=== PATIENT | female | born 1950 | race Caucasian/White ===

== ENCOUNTER 2019-11-30 09:09 | Outpatient (CLI) | payer MEDICARE, SELFPAY ==
--- NOTE | 2019-11-30 10:25 | ECG_ITS ---
Measurements Intervals Taylor Rate: 79 P: 108 DE: 180 QRS: 3 QRSD: 87 T: 27 QT: 364 QTc: 419 Interpretive Statements SINUS RHYTHM LOW QRS VOLTAGE IN PRECORDIAL LEADS BORDERLINE R WAVE PROGRESSION, ANTERIOR LEADS BASELINE ARTIFACT- I, II, III, AVR, AVL, AVF BORDERLINE ECG Electronically Signed On 11-30-2019 11:09:30 MERCHANDISING MANAGER by Star Tom D.O.
[2019-11-30 10:43] LABS: Basophils Absolute Auto 0.1 K/mm3 (0.0-0.1); Basophils Percent Auto 1.8 % (0.2-1.2); Eosinophils Absolute Auto 0.4 K/mm3 (0-0.3); Eosinophils Percent Auto 5.8 % (0-4.4); Hematocrit 41.6 % (37.0-47.0); Hemoglobin 13.7 g/dL (12.0-15.0); Immature Granulocyte Absolute 0.02 K/mm3 (0.00-0.031); Immature Granulocyte Percent A 0.3 % (0-0.5); Lymphocytes Absolute Auto 1.17 K/mm3 (0.9-3.2); Lymphocytes Percent Auto 17.4 % (18.3-44.2); Mean Corpuscular HGB Conc 32.9 g/dl (32-36); Mean Corpuscular Hemoglobin 30.6 pg (26-34); Mean Corpuscular Volume 92.9 fl (80-100); Mean Platelet Volume 9.9 fl (7.4-10.4); Monocytes Absolute Auto 0.6 K/mm3 (0.1-0.6); Monocytes Percent Auto 8.8 % (2.6-8.5); Neutrophils Absolute Auto 4.4 K/mm3 (1.3-6.7); Neutrophils Percent Auto 65.9 % (45.5-73.1); Platelet Count Result 305 k/mm3 (150-375); Red Blood Count 4.48 M/mm3 (4.2-5.4); Red Cell Distribution Width 12.9 % (11.5-14.5); White Blood Count 6.7 K/mm3 (4.5-10.0)
[2019-11-30 10:58] LABS: Blood Urea Nitrogen 16 mg/dL (7-17); Calcium 9.7 mg/dL (8.4-10.2); Carbon Dioxide 32 mmol/L (22-30); Chloride 99 mmol/L (98-107); Estimated Glomerular Filt Rate > 60; Glucose 92 mg/dL (65-105); Potassium 3.6 mmol/L (3.4-5.0); Sodium 142 mmol/L (137-145)
== END 2019-11-30 09:10 | disposition home or self-care (01) ==
PROVIDERS: Anesthesiology; Obstetrics & Gynecology; PCP Family Medicine; Visit Provider Urology
DX: N81.4 Uterovaginal prolapse, unspecified (principal); I10 Essential (primary) hypertension; R94.31 Abnormal electrocardiogram [ECG] [EKG]
CPT/HCPCS: 36415; 80048; 85025; 86850; 86900; 86901; 93005

== ENCOUNTER 2019-12-10 00:17 | Day surgery (SDC) | payer MEDICARE, SELFPAY ==
[2019-11-30 09:27] VITALS: BP 158/91; PULSE 75; RESP 16; TEMP 37.1; O2SAT 99; BMI 26.8
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
[2019-12-10] VITALS (16 sets, daily range): BP systolic 114–165; BP diastolic 75–94; PULSE 71–101; RESP 14–18; TEMP 36–37.2; O2SAT 94–100
--- NOTE | 2019-12-10 06:48 | WPDHPUPDATE1 ---
History and Physical Update Update Date/Time: 12/10/19 06:48 History and Physical has been reviewed, including an updated exam of the patient. There are NO changes in the patient's condition. Risks, benefits, and alternatives have been discussed and questions answered. Patient agrees to proceed with procedure.
--- NOTE | 2019-12-10 07:21 | WPDHPUPDATE1 ---
History and Physical Update Update Date/Time: 12/10/19 07:21 History and Physical has been reviewed, including an updated exam of the patient. There are NO changes in the patient's condition. Risks, benefits, and alternatives have been discussed and questions answered. Patient agrees to proceed with procedure.
[2019-12-10] MEDS: LACTATED RINGERS 1,000 ML 30 ML IV CONT ×2 (09:45→14:20)
[2019-12-10 10:16] LABS: Prothrombin Time 12.4 Seconds (11.1-14.7)
[2019-12-10 10:17] LABS: Partial Thromboplastin Time 28.1 SECONDS (22.3-36.8)
[2019-12-10 10:18] LABS: Alanine Aminotransferase 13 U/L (4-35); Albumin Level 4.5 g/dL (3.5-5.1); Alkaline Phosphatase 59 U/L (38-126); Aspartate Amino Transferase 26 U/L (14-36); Bilirubin,Total 0.3 mg/dL (0.2-1.3); Blood Urea Nitrogen 19 mg/dL (7-17); Calcium 9.8 mg/dL (8.4-10.2); Carbon Dioxide 30 mmol/L (22-30); Chloride 100 mmol/L (98-107); Estimated CRCL calculation 43 ml/min; Estimated Glomerular Filt Rate 55; Glucose 93 mg/dL (65-105); Potassium 3.8 mmol/L (3.4-5.0); Sodium 142 mmol/L (137-145)
--- NOTE | 2019-12-10 10:28 | WPDANESEPPF ---
Anes - Initial Pre Proc Eval Procedure: Operation Date: 12/10/19 12:00 Proposed Procedures p Robotic Sacrocolpopexy, Possible Urethral Sling - Riki Levy MD s Robotic Assisted Supracervical Hysterectomy, Bilateral Salpingo-Oophorectomy - Roge Sanchez MD Date/Time: 12/10/19 10:28 Surgeon: Riki Levy MD Pre Op Diagnosis: cystocele, uterine prolapse Patient Data Age: 69 Gender: F Height: 5 ft 6 in Weight: 75.8 kg Last Vital Signs Temp 36.3 C L 12/10/19 10:14 Pulse 89 12/10/19 10:14 Resp 18 12/10/19 10:14 BP 149/91 H 12/10/19 10:14 Pulse Ox 99 12/10/19 10:14 Allergies Allergy/AdvReac Type Severity Reaction Status Date / Time No Known Allergies Allergy Verified 12/10/19 10:05 Home Medications Medication Instructions Recorded Confirmed Type Ca-D3-mag yx-cuzt-zpb-ember-bor 1 tablet PO DAILY 11/30/19 12/10/19 History [Calcium 600-D3 Plus (mag-zinc)] aspirin [Aspir-Low] 81 mg PO DAILY 11/30/19 12/10/19 History biotin 10,000 mcg PO DAILY 11/30/19 12/10/19 History furosemide 40 mg PO DAILY 11/30/19 12/10/19 History lisinopril-hydrochlorothiazide 1 tablet PO DAILY 11/30/19 12/10/19 History erxjyntywurn-inut-krume acid 1 tablet PO DAILY 11/30/19 12/10/19 History [Centrum] potassium chloride 8 meq PO DAILY 11/30/19 12/10/19 History turmeric root extract 500 mg PO DAILY 11/30/19 12/10/19 History Laboratory Tests 12/10/19 12/10/19 09:39 09:39 PT 12.4 Seconds Seconds (11.1-14.7) INR 1.0 APTT 28.1 SECONDS SECONDS (22.3-36.8) Sodium 142 mmol/L mmol/L (137-145) Potassium 3.8 mmol/L mmol/L (3.4-5.0) Chloride 100 mmol/L mmol/L (98-107) Carbon Dioxide 30 mmol/L mmol/L (22-30) BUN 19 mg/dL H mg/dL (7-17) Creatinine 1.00 mg/dL mg/dL (0.7-1.0) Estim Creat Clear Calc 43 ml/min ml/min Estimated GFR 55 L (59 - ) Glucose 93 mg/dL mg/dL (65-105) Calcium 9.8 mg/dL mg/dL (8.4-10.2) Total Bilirubin 0.3 mg/dL mg/dL (0.2-1.3) AST 26 U/L U/L (14-36) ALT 13 U/L U/L (4-35) Alkaline Phosphatase 59 U/L U/L (38-126) Total Protein 8.0 g/dL g/dL (6.3-8.2) Albumin 4.5 g/dL g/dL (3.5-5.1) Patient hx anesthesia problems: none Family hx anesthesia problems: none PMFSH Past Medical History Medical History Luis's palsy Hypertension Anes - Eval Final PreProcedure Day of Procedure 12/10/19 10:28 Patient weight: overweight Heart: regular rate and rhythm Lungs: clear to auscultation Airway: Mallampati scale class II Neurological: alert and oriented Last oral intake: >/= 8 hours ASA classification: II Emergent: no Anesthetic plan: proceed Anesthesia type and monitoring: general ETT and standard monitoring Informed Consent: The patient's anesthetic plan and its attendant risks and benefits were discussed with the patient/family/POA. Questions were solicited and answers provided to the satisfaction of the patient/family/POA.
[2019-12-10] MEDS: ceFAZolin 2 GM/D5W 50 ML 2 GM/50 ML BAG IVPB (11:14)
[2019-12-10] MEDS: metroNIDAZOLE 500 MG/ISO 100ML 500 MG/100 ML BAG 100 MG IVPB ×2 (11:21→19:45)
--- NOTE | 2019-12-10 12:14 | PM.PROC ---
Procedure Note - Detailed Date of procedure: 12/10/19 Pre-op diagnosis: cystocele, uterine prolapse Surgeon: Roge Sanchez MD Postop diagnosis: Cystocele, uterine prolapse Anesthesia: General endotracheal EBL: 25cc Findings: Prolapsed uterus, small ovaries and tubes Complications: None Procedure: Robotic supracervical hysterectomy and bilateral salpingo-oophorectomy. This was done in conjunction with robotic sacrocolpopexy with Dr. Ozuna Description of procedure: The patient was prepped draped under normal sterile fashion and placed in the dorsal lithotomy position. Under excellent general endotracheal anesthesia weighted speculum was placed in posterior fornix vagina. Anterior lip of the cervix grasped with a single-tooth tenaculum. Garcia's cannula inserted to the cervix attached to the single-tooth to be used later for uterine manipulation. A 16 [place]bourgish catheter was placed. A double Mike proceed with undocking the robot. The left round ligament was grasped burned and cut. A bladder flap was formed anteriorly and the bladder retracted caudally. Next the right round ligament was clamped grasped, burned, cut. The left infundibulopelvic structure was skeletonized and serially clamped, burned, cut and brought to level the previously cut round ligament. In like fashion the right infundibulopelvic structure was clamped, burned, cut. Next the left cardinal and broad ligaments were serially skeletonized. These were clamped, burned, cut and brought to the level of the uterine vessels. Uterine vessels were then clamped individually cut and burned. In like fashion the cardinal and broad ligaments on the left were serially skeletonized, clamped, burned, cut. Excellent blanching was seen a supracervical incision was made. The uterus ovaries and tubes were placed in the Endo-Catch. Dr. Levy proceeded with the sacral colpopexy at that point. Please see his operative report for full details
[2019-12-10] MEDS: BUPIVACAINE/EPINEPHRINE 0.25% 50 ML VIAL 20 ML INFILTRATE (12:22)
--- NOTE | 2019-12-10 12:28 | SUR.OPER ---
STEPHANIE Y MESH LOT [id number], EXP 2022-07-23. TO STERILE FIELD 1229.
--- NOTE | 2019-12-10 13:52 | SUR.OPER ---
kayla vergara lot [id number], exp 2022-07-25, to sterile field 1353.
--- NOTE | 2019-12-10 14:08 | PM.PROC ---
Procedure Note - Detailed Date of procedure: 12/10/19 Pre-op diagnosis: cystocele, uterine prolapse Uterine prolapse Stress urinary incontinence Post-op diagnosis: same Procedure performed: Robotic assisted laparoscopic sacral colpopexy Mid urethral sling (transobturator sling) Cystoscopy Description of procedure: She understood the risks of bleeding, infection, damage to surrounding organs, bowel injury, bowel obstruction, recurrence of prolapse, persistent or recurrent stress incontinence, mesh related complications including exposure and extrusion, diskitis, postoperative voiding dysfunction including incontinence and retention, hip and leg pain, dyspareunia, and she agrees to proceed. She was correctly identified and informed consent was obtained. She was brought to the operating room. She was given general anesthesia. She was placed in the dorsal lithotomy position. All pressure points were padded. She was given appropriate perioperative antibiotics. Time-out performed. I anesthetized the skin 3 fingerbreadths cephalad to the umbilicus. I incised the skin. I dissected down to locate the fascia. I grasped the fascia with Teri clamps. I entered the fascia sharply. I placed Vicryl sutures for later fascial closure. I placed a midline trocar. Under direct vision 2 additional trocars were placed on the right and left upper quadrant. She was placed in steep Trendelenburg and the robot was docked. Her salesperson meats performed the portion of the procedure and left the specimen and a sac which was extracted. I then sat at the console. For some excess cervix which I removed with cautery. With the Sizer in the vagina I created a plane on the anterior and posterior vaginal wall. This was done for several cm taking great care not to injure the vagina, bladder, or rectum. I introduced the mesh into the abdomen. I sewed the anterior leaflet of mesh on the anterior vaginal wall and posterior leaf of the mesh on the posterior vaginal wall with several Ames-Aristeo sutures taking great care not to go through and through. I then reflected the colon laterally. I opened up the posterior peritoneum over the sacral promontory. I carried this into the cul-de-sac. I kept the ureters lateral. I freed up the edges. I located the anterior longitudinal ligament of the sacrum. I tensioned the mesh appropriately. I did a vaginal exam to ensure prolapse reduction without undue tension. I then sewed the proximal leaflet of mesh onto the ligament with 3 sutures of 2 0 Ames-Aristeo. Next the mass was meticulously retroperitonealized with a running 2 0 Monocryl suture. I allowed the colon to go back into its normal anatomic location. There is no signs of any impingement or stricturing. The abdomen was exited. Fascia was closed. Skin was closed with Monocryl and glue. She was repositioned and prepped for urethral sling. I marked out the thigh incisions. I anesthetize the skin and made those incisions. I anesthetized the anterior vaginal wall over the mid urethra. I made a 1 cm incision. I dissected out laterally taking great care not to injure the urethra or the vaginal wall. I next passed the helical trocars to 1st on the left and then on the right. This was done from the thigh incision towards the vaginal incision. The sling was connected to the trocars and brought out through the thigh incision. I tensioned the sling appropriately. I cut and removed the plastic sheaths. I then closed the incision with 2 0 Vicryl. I then performed cystoscopy. The bladder is examined. There was no tumors, stones, foreign bodies, surgical artifact. Both ureters were seen to excrete clear yellow urine. There is no surgical artifact in the urethra. Catheter was then replaced. She was awakened and transferred to the PACU in stable condition. Anesthesia: GLMA Surgeon: Riki Levy MD Drains: Yes (Hoffmann catheter) Packing: Yes Complications: No immediate complications Condition:
--- NOTE | 2019-12-10 15:51 | PC.NURSE ---
This patient, Dorene Mustafa, was received from PACU to room 288 per bed. Patient/family oriented to unit policies and routines
[2019-12-10] MEDS: KCL 20 MEQ/D5/0.45% SOD CHL 1,000 ML 100 ML IV CONT (16:15)
[2019-12-10] MEDS: KETOROLAC 30 MG/ML VIAL (*BKC) 15 MG IV PUSH (16:15)
[2019-12-10] MEDS: MORPHINE SULFATE 2 MG/ML INJ IV PUSH ×3 (16:55→23:21)
[2019-12-11] MEDS: KCL 20 MEQ/D5/0.45% SOD CHL 1,000 ML 100 ML IV CONT (00:35)
[2019-12-11] MEDS: KETOROLAC 30 MG/ML VIAL (*BKC) 15 MG IV PUSH ×2 (00:36→09:02)
[2019-12-11] MEDS: metroNIDAZOLE 500 MG/ISO 100ML 500 MG/100 ML BAG 100 MG IVPB ×2 (03:00→10:56)
[2019-12-11] MEDS: MORPHINE SULFATE 2 MG/ML INJ IV PUSH (03:06)
[2019-12-11 04:10] VITALS: BP 107/60; PULSE 93; RESP 14; TEMP 36.9; O2SAT 95
--- NOTE | 2019-12-11 06:46 | PM.OBPNVD ---
OB - PN: Subj Subjective Date/time seen: 12/11/19 06:46 Patient comments: no complaints and pain well controlled OB - PN: Obj Data Labs CBC & Chem 7: 12/10/19 09:39 Labs: Laboratory Results - last 24 hr 12/10/19 12/10/19 09:39 09:39 PT 12.4 INR 1.0 APTT 28.1 Sodium 142 Potassium 3.8 Chloride 100 Carbon Dioxide 30 BUN 19 H Creatinine 1.00 Estim Creat Clear Calc 43 Estimated GFR 55 L Glucose 93 Calcium 9.8 Total Bilirubin 0.3 AST 26 ALT 13 Alkaline Phosphatase 59 Total Protein 8.0 Albumin 4.5 OB - PN A/P Plan day: 1 Plan: discharge home and follow up 6 weeks (2 weeks) Time Spent With Patient Time: Total time spent is greater than 50% in coordination of care (as documented) at patient's floor/unit and/or counseling patient: Time with patient: less than 15 minutes Review of Systems Review of Systems: All systems reviewed & are unremarkable except as noted in HPI and below Exam Const: General: no acute distress Eyes: General: appearance normal, both eyes and all related structures Neck: Neck: supple and no JVD Thyroid: thyroid normal Resp: Effort & Inspection: normal respiratory effort Auscultation: clear to auscultation bilaterally Cardio: Rate: regular rate Rhythm: regular rhythm GI: Inspection: non-distended GI Palp: Yes Soft to palpation, No Tenderness to palpation present (GI) and No Guarding due to palpation present (GI) Auscultation: normal bowel sounds : General: Yes bladder normal to palpation External Female Exam: normal external appearance Speculum Exam - Vagina: normal vaginal discharge and No vaginal bleeding Speculum Exam - Cervix: nontender Bimanual exam- vagina & uterus: bladder normal to palpation and No Cervical tenderness present OB/external & speculum: No vaginal bleeding Skin: General skin exam: no rashes or lesions noted Extrem: General: normal to inspection and no edema Psych: Mental Status: mental status grossly normal Affect: normal affect
--- NOTE | 2019-12-11 06:47 | PM.DS ---
DS: Diagnosis Admitting Diagnosis Admitting Diagnosis: Uterovaginal prolapse, unspecified DS: Summary Time Spent with Patient Time attestation: Total time spent providing and/or coordinating discharge services: Exam Const: General: no acute distress Eyes: General: appearance normal, both eyes and all related structures Neck: Neck: supple and no JVD Thyroid: thyroid normal Resp: Effort & Inspection: normal respiratory effort Auscultation: clear to auscultation bilaterally Cardio: Rate: regular rate Rhythm: regular rhythm GI: Inspection: non-distended GI Palp: Yes Soft to palpation, No Tenderness to palpation present (GI) and No Guarding due to palpation present (GI) Auscultation: normal bowel sounds : General: Yes bladder normal to palpation External Female Exam: normal external appearance Speculum Exam - Vagina: normal vaginal discharge and No vaginal bleeding Speculum Exam - Cervix: nontender Bimanual exam- vagina & uterus: bladder normal to palpation and No Cervical tenderness present OB/external & speculum: No vaginal bleeding Skin: General skin exam: no rashes or lesions noted Extrem: General: normal to inspection and no edema Psych: Mental Status: mental status grossly normal Affect: normal affect DS: Data Data Completed and Pending Pending studies at discharge: Pending at discharge 12/10/19 12:03 Surgical [PTH] Routine Labs on day of discharge: Labs from last 24 hours 12/10/19 12/10/19 09:39 09:39 PT 12.4 INR 1.0 APTT 28.1 Sodium 142 Potassium 3.8 Chloride 100 Carbon Dioxide 30 BUN 19 H Creatinine 1.00 Estim Creat Clear Calc 43 Estimated GFR 55 L Glucose 93 Calcium 9.8 Total Bilirubin 0.3 AST 26 ALT 13 Alkaline Phosphatase 59 Total Protein 8.0 Albumin 4.5 Discharge Plan Discharge Patient Disposition: Home, Self-Care Discharge Instructions: No lifting >20lb, exercise for 6 weeks No tub bath or pool for 2 weeks No intercourse for 6 weeks Follow-up/Referrals: Riki Levy MD [Physician] - (And 1 week and in 6 weeks) Discharge Medications: New hydrocodone-acetaminophen [[place]] 5-325 mg tablet 1 tablet PO Q4H PRN (Reason: pain) Qty: 20 RF: 0 docusate sodium [Colace] 100 mg capsule 100 mg PO BID Qty: 60 RF: 0 Continued furosemide 40 mg tablet 40 mg PO DAILY RF: 0 lisinopril-hydrochlorothiazide 20-12.5 mg tablet 1 tablet PO DAILY RF: 0 biotin 10,000 mcg Capsule 10,000 mcg PO DAILY RF: 0 Centrum 18-400 mg-mcg Tablet 1 tablet PO DAILY RF: 0 turmeric root extract 500 mg Capsule 500 mg PO DAILY RF: 0 Ca-D3-mag yr-ewdr-gni-ember-bor [Calcium 600-D3 Plus (mag-zinc)] 600 mg calcium- 800 unit-50 mg Tablet 1 tablet PO DAILY RF: 0 potassium chloride 8 mEq Capsule, Extended Release 8 meq PO DAILY RF: 0 Held aspirin [Aspir-Low] 81 mg Tablet,Delayed Release (Dr/Ec) 81 mg PO DAILY RF: 0 Hold Instructions: Resume on 12/13/19. Other Ambulatory Orders: Comprehensive Metabolic Panel (Routine) Timeframe: 2 Months Location: Determined by Patient Ordered By: Riki Levy
[2019-12-11 08:00] VITALS: BP 102/66; PULSE 78; RESP 16; TEMP 36.9; O2SAT 100
[2019-12-11] MEDS: DOCUSATE SODIUM 100 MG CAPSULE PO (09:03)
[2019-12-11] MEDS: FUROSEMIDE 40 MG TABLET PO (09:04)
[2019-12-11] MEDS: hydroCHLOROthiazide 12.5 MG CAPSULE PO (09:04)
[2019-12-11] MEDS: lisinopriL 20 MG TABLET PO (09:04)
[2019-12-11] MEDS: ENOXAPARIN 30 MG/0.3 ML SYRINGE SUB-Q (09:05)
--- NOTE | 2019-12-11 09:45 | WPDANESPN ---
Anes - Prog Note Post-Op Date/Time: 12/11/19 09:45 Cardiovascular status: normal Respiratory status: normal Airway patency: baseline Mental status: baseline Post-Op hydration status: normal Vital Signs: Last Vital Signs Temp 36.9 C 12/11/19 08:00 Pulse 78 12/11/19 08:00 Resp 16 12/11/19 08:00 BP 102/66 12/11/19 08:00 Pulse Ox 100 12/11/19 08:00 I/O: Intake & Output 12/10/19 12/11/19 12/11/19 23:59 07:59 15:59 Intake Total 750 1700 Output Total 550 600 Balance 200 1100 Laboratory Tests 12/10/19 09:39 12/10/19 12/10/19 09:39 09:39 PT 12.4 INR 1.0 APTT 28.1 Sodium 142 Potassium 3.8 Chloride 100 Carbon Dioxide 30 BUN 19 H Creatinine 1.00 Estim Creat Clear Calc 43 Estimated GFR 55 L Glucose 93 Calcium 9.8 Total Bilirubin 0.3 AST 26 ALT 13 Alkaline Phosphatase 59 Total Protein 8.0 Albumin 4.5 Post-procedural complaints: none Patient Feedback: Patient satisfied with anesthetic care.
[2019-12-11 11:15] VITALS: BP 147/84; PULSE 83; RESP 18; TEMP 36.9; O2SAT 97
== END 2019-12-11 15:35 | disposition home or self-care (01) ==
LOC: ANHSURGERY 14:14 → ANHOB2 15:46
PROVIDERS: PCP Family Medicine; Referring Provider Obstetrics & Gynecology; Visit Provider Urology
PROC: (CPT 57425; principal; 2019-12-10 12:00)
PROC: 0UT94ZZ Resection of Uterus, Percutaneous Endoscopic Approach (ICD-10-PCS; CPT 57425; 2019-12-10 12:00)
DX: N81.4 Uterovaginal prolapse, unspecified (principal); N39.3 Stress incontinence (female) (male); N84.0 Polyp of corpus uteri; D25.0 Submucous leiomyoma of uterus; D25.1 Intramural leiomyoma of uterus; D25.2 Subserosal leiomyoma of uterus; N83.8 Other noninflammatory disorders of ovary, fallopian tube and broad ligament; N83.312 Acquired atrophy of left ovary; N83.311 Acquired atrophy of right ovary; I10 Essential (primary) hypertension; G51.0 Bell's palsy; Z79.82 Long term (current) use of aspirin
CPT/HCPCS: 57425; 57288; 58542; S2900; 36415; 80053; 85610; 85730; 88307; 99199; A9270; C1771; C1781; J0131; J0690; J1100; J1650; J1885; J2270; J2405; J2704; J3010; J3480; J7030; J7120

== ENCOUNTER 2021-01-30 12:26 | Outpatient (CLI) | payer MEDICARE, SELFPAY ==
--- NOTE | ~2021-01-30 | MM_ITS ---
EXAMINATION: MM screening [place] BI w rain HISTORY: Screening mammogram TECHNIQUE: Craniocaudal and mediolateral oblique 3-D tomosynthesis images were obtained and synthetic 2-D images were generated. CAD analysis was submitted and interpreted. COMPARISON: 08/10/2019, 07/19/2017, 07/12/2016 bilateral digital screening mammogram examinations BREAST PARENCHYMAL COMPOSITION: There are scattered areas of fibroglandular density. FINDINGS: There is no evidence of suspicious mass, calcification, or architectural distortion to sugg est malignancy in either breast. There has been no suspicious interval change. IMPRESSION: 1. No mammographic evidence of malignancy. 2. Recommend routine screening mammography in one year. BI-RADS Category 1: Negative Reviewed, dictated and finalized at location A.
== END 2021-01-30 12:27 | disposition home or self-care (01) ==
LOC: CHSIMG 12:28
PROVIDERS: PCP Family Medicine; Visit Provider Family Medicine
DX: Z12.31 Encounter for screening mammogram for malignant neoplasm of breast (principal)
CPT/HCPCS: 77063; 77067

== ENCOUNTER 2022-04-23 12:16 | Outpatient (CLI) | payer MEDICARE, SELFPAY ==
[2022-04-23 12:26] LABS: Basophils Absolute Auto 0.08 K/mm3 (0.00-0.10); Basophils Percent Auto 1.1 % (0.0-1.0); Eosinophils Absolute Auto 0.06 K/mm3 (0.02-0.50); Eosinophils Percent Auto 0.8 % (1.0-6.0); Hematocrit 41.4 % (35.0-42.0); Hemoglobin 13.9 g/dL (11.7-13.8); Immature Granulocyte Absolute 0.03 K/mm3 (0.00-0.00); Immature Granulocyte Percent A 0.4 % (0.0-0.0); Lymphocytes Percent Auto 18.6 % (18.0-42.0); Mean Corpuscular HGB Conc 33.6 g/dL (32.0-36.0); Mean Corpuscular Hemoglobin 30.8 pg (27.0-31.0); Mean Corpuscular Volume 91.6 fL (78.0-102.0); Mean Platelet Volume 9.3 fl (9.2-11.8); Monocytes Absolute Auto 0.48 K/mm3 (0.10-0.90); Monocytes Percent Auto 6.4 % (2.0-11.0); Neutrophils Absolute Auto 5.5 K/mm3 (1.7-7.2); Neutrophils Percent Auto 72.7 % (50.0-70.0); Platelet Count Result 265 K/mm3 (150-420); Red Blood Count 4.52 M/mm3 (4.20-5.40); Red Cell Distribution Width 12.5 % (11.6-14.4); White Blood Count 7.5 K/mm3 (4.8-10.8)
[2022-04-23 12:44] LABS: Alanine Aminotransferase 16 U/L (14-59); Albumin Level 3.9 g/dL (3.4-5.0); Alkaline Phosphatase 64 U/L (46-116); Anion Gap 6 mmol/L (8-16); Aspartate Amino Transferase 20 U/L (15-37); Bilirubin,Total 0.4 mg/dL (0.00-1.00); Blood Urea Nitrogen 11 mg/dL (7-18); Calcium 9.1 mg/dL (8.5-10.1); Carbon Dioxide 31 mmol/L (21-32); Chloride 104 mmol/L (98-108); Cholesterol 182 mg/dL (0-200); Estimated Glomerular Filt Rate > 60; Glucose 105 mg/dL (70-99); HDL Direct 66 mg/dL (40-60); LDL Cholesterol Calculated 103 mg/dL (<130); Osmolality Calculated 291 mOsm/kg (285-295); Potassium 3.7 mmol/L (3.5-5.1); Sodium 141 mmol/L (136-145); Triglycerides 65 mg/dL (0-150)
== END 2022-04-23 12:17 | disposition home or self-care (01) ==
LOC: CHSLAB 12:18
PROVIDERS: PCP Family Medicine; Visit Provider Nurse Practitioner Family
DX: I10 Essential (primary) hypertension (principal)
CPT/HCPCS: 36415; 80053; 80061; 85025

== ENCOUNTER 2023-06-06 10:45 | Outpatient (CLI) | payer MEDICARE, SELFPAY ==
[2023-06-06 11:25] LABS: Basophils Absolute Auto 0.08 K/mm3 (0.00-0.10); Basophils Percent Auto 1.5 % (0.0-1.0); Eosinophils Absolute Auto 0.25 K/mm3 (0.02-0.50); Eosinophils Percent Auto 4.8 % (1.0-6.0); Hematocrit 39.7 % (35.0-42.0); Immature Granulocyte Absolute 0.02 K/mm3 (0.00-0.00); Immature Granulocyte Percent A 0.4 % (0.0-0.0); Lymphocytes Absolute Auto 1.18 K/mm3 (1.10-4.50); Lymphocytes Percent Auto 22.6 % (18.0-42.0); Mean Corpuscular HGB Conc 32.7 g/dL (32.0-36.0); Mean Corpuscular Hemoglobin 30.6 pg (27.0-31.0); Mean Corpuscular Volume 93.4 fL (78.0-102.0); Mean Platelet Volume 9.2 fl (9.2-11.8); Monocytes Absolute Auto 0.53 K/mm3 (0.10-0.90); Monocytes Percent Auto 10.2 % (2.0-11.0); Neutrophils Absolute Auto 3.2 K/mm3 (1.7-7.2); Neutrophils Percent Auto 60.5 % (50.0-70.0); Platelet Count Result 240 K/mm3 (150-420); Red Blood Count 4.25 M/mm3 (4.20-5.40); Red Cell Distribution Width 13.4 % (11.6-14.4); White Blood Count 5.2 K/mm3 (4.8-10.8)
[2023-06-06 12:11] LABS: Alanine Aminotransferase 13 U/L (14-59); Albumin Level 3.7 g/dL (3.4-5.0); Alkaline Phosphatase 68 U/L (46-116); Anion Gap 7 mmol/L (8-16); Aspartate Amino Transferase 17 U/L (15-37); Bilirubin,Total 0.4 mg/dL (0.00-1.00); Blood Urea Nitrogen 15 mg/dL (7-18); Carbon Dioxide 31 mmol/L (21-32); Chloride 104 mmol/L (98-108); Estimated Glomerular Filt Rate > 60; Glucose 92 mg/dL (70-99); Osmolality Calculated 294 mOsm/kg (285-295); Potassium 4.2 mmol/L (3.5-5.1); Sodium 142 mmol/L (136-145); Total Protein 6.5 g/dL (6.4-8.2)
== END 2023-06-06 10:46 | disposition home or self-care (01) ==
LOC: CHSLAB 10:50
PROVIDERS: PCP Family Medicine; Visit Provider Family Medicine
DX: I10 Essential (primary) hypertension (principal)
CPT/HCPCS: 36415; 80053; 85025

== ENCOUNTER 2024-10-02 14:45 | Outpatient (CLI) | payer MEDICARE, SELFPAY ==
[2024-10-02 15:04] LABS: Basophils Absolute Auto 0.09 K/mm3 (0.00-0.10); Basophils Percent Auto 1.3 % (0.0-1.0); Eosinophils Absolute Auto 0.14 K/mm3 (0.02-0.50); Hematocrit 40.1 % (35.0-42.0); Hemoglobin 13.1 g/dL (11.7-13.8); Immature Granulocyte Absolute 0.01 K/mm3 (0.00-0.00); Immature Granulocyte Percent A 0.1 % (0.0-0.0); Lymphocytes Absolute Auto 1.85 K/mm3 (1.10-4.50); Lymphocytes Percent Auto 25.9 % (18.0-42.0); Mean Corpuscular HGB Conc 32.7 g/dL (32-36); Mean Corpuscular Hemoglobin 29.3 pg (27.0-31.0); Mean Corpuscular Volume 89.7 fL (78.0-102.0); Mean Platelet Volume 9.4 fl (9.2-11.8); Monocytes Percent Auto 8.4 % (2.0-11.0); Neutrophils Absolute Auto 4.44 K/mm3 (1.70-7.20); Neutrophils Percent Auto 62.3 % (50.0-70.0); Platelet Count Result 332 K/mm3 (150-420); Red Blood Count 4.47 M/mm3 (4.20-5.40); White Blood Count 7.1 K/mm3 (4.8-10.8)
[2024-10-02 16:00] LABS: Alanine Aminotransferase 20 U/L (14-59); Albumin Level 3.7 g/dL (3.4-5.0); Alkaline Phosphatase 57 U/L (46-116); Anion Gap 9 mmol/L (4-12); Aspartate Amino Transferase 16 U/L (15-37); Bilirubin,Total 0.5 mg/dL (0.00-1.00); Blood Urea Nitrogen 18 mg/dL (7-18); CRP 1.2 mg/dL (0.0-0.9); Calcium 9.3 mg/dL (8.5-10.1); Carbon Dioxide 30 mmol/L (21-32); Chloride 103 mmol/L (98-108); Estimated Glomerular Filt Rate > 60; Glucose 96 mg/dL (70-99); Osmolality Calculated 295 mOsm/kg (285-295); Potassium 3.8 mmol/L (3.5-5.1); Sodium 142 mmol/L (136-145); Total Protein 6.9 g/dL (6.4-8.2)
== END 2024-10-02 14:46 | disposition home or self-care (01) ==
LOC: CHSLAB 14:47
PROVIDERS: PCP Family Medicine; Visit Provider Family Medicine
DX: K52.9 Noninfective gastroenteritis and colitis, unspecified (principal)
CPT/HCPCS: 36415; 80053; 85025; 86140

== ENCOUNTER 2024-10-03 14:12 | Outpatient (CLI) | payer MEDICARE, SELFPAY ==
[2024-10-03 15:24] LABS: Toxigenic C. Diff NEGATIVE (NEGATIVE)
[2024-10-07 14:44] LABS: Fecal Fat, Ql Normal (Normal)
[2024-10-10 15:03] LABS: Pancreatic Elastase, Stool >800 mcg/g (>200)
== END 2024-10-03 14:13 | disposition home or self-care (01) ==
PROVIDERS: PCP Family Medicine; Visit Provider Family Medicine
DX: K52.9 Noninfective gastroenteritis and colitis, unspecified (principal)
CPT/HCPCS: 82653; 82705; 87045; 87427; 87449; 87493